=== PATIENT | male | born 1990 | race Caucasian/White ===

== ENCOUNTER 2019-08-25 23:56 | Emergency (ER) | payer OTHER ==
[~2019-08-25] VITALS: Ht 175 cm; Wt 63.0 kg
[2019-08-26] MEDS ORDERED: L.E.T. SYRINGE 5 ML MM STA (00:04)
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
[2019-08-26] MEDS ORDERED: TETANUS,DIPTH,PERTUSS P/F (BOOSTRIX) 0.5 ML VIAL IM ONE (00:15)
[2019-08-26] MEDS ORDERED: IBUPROFEN 800 MG (MOTRIN) TAB PO STA (00:45)
[2019-08-26] MEDS ORDERED: LIDOCAINE/EPI 2% 1:100,00 (XYLOCAINE) 20 ML VIAL INJ ONE (00:45)
[2019-08-26 01:58] VITALS: BP 119/64
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
== END 2019-08-26 01:58 ==
LOC: ER FS 08-26 00:01 → EDBD 08-26 00:01 → ER FS 08-26 01:58
DX: S01.81XA Laceration without foreign body of other part of head, initial encounter (principal); S09.90XA Unspecified injury of head, initial encounter; F17.200 Nicotine dependence, unspecified, uncomplicated; Z23 Encounter for immunization; V48.6XXA Car passenger injured in noncollision transport accident in traffic accident, initial encounter
CPT/HCPCS: 12001; 70450; 90471; 90715